=== PATIENT | female | born 1995 | race Caucasian/White ===

== ENCOUNTER → 2018-07-02 | Outpatient (REF) | payer MEDICARE ==
[2018-07-02 16:02] LABS: ESTIMATED AVERAGE GLUCOSE 111 MG/DL (60-110); HEMOGLOBIN A1c 5.5 %
[2018-07-02 16:17] LABS: ANION GAP 8 MEQ/L (8-16); BLOOD UREA NITROGEN 8 MG/DL (7-18); CALCIUM LEVEL 9.6 MG/DL (8.5-10.1); CARBON DIOXIDE LEVEL 29 MEQ/L (21-32); CHLORIDE LEVEL 102 MEQ/L (98-107); CREATININE FOR GFR 0.87 MG/DL (0.55-1.30); FREE T4 0.99 NG/DL (0.76-1.46); GLOMERULAR FILTRATION RATE > 60.0 (>60); GLUCOSE, FASTING 82 MG/DL (70-100); PROLACTIN 9.7 NG/ML; SODIUM LEVEL 139 MEQ/L (136-145)
[2018-07-03 09:27] LABS: RUBELLA IgG QUALITATIVE IMMUNE (IMMUNE)
[2018-07-04 08:06] LABS: MUMPS VIRUS IgG ANTIBODY 95.7 AU/mL (Immune >10.9)
[2018-07-04 08:06] LABS: RUBEOLA IgG ANTIBODY >300.0 AU/mL (Immune >29.9)
== END ==
LOC: M SFHCPLAZ 14:06
DX: D35.2 Benign neoplasm of pituitary gland (principal); E66.01 Morbid (severe) obesity due to excess calories; Z68.45 Body mass index [BMI] 70 or greater, adult; F17.200 Nicotine dependence, unspecified, uncomplicated; H53.9 Unspecified visual disturbance
CPT/HCPCS: 84146

== ENCOUNTER → 2018-07-09 | Outpatient (CLI) | payer OTHER ==
[~2018-07-09] MED LIST: PROHANCE 279.3MG/ML 5ML VIAL (A9576) As Ordered
== END ==
LOC: M RAD 15:43
DX: Z86.018 Personal history of other benign neoplasm (principal)
CPT/HCPCS: A9576

== ENCOUNTER → 2019-09-12 | Outpatient (REF) | payer OTHER ==
[2019-09-12 14:56] LABS: FREE T4 1.16 NG/DL (0.76-1.46); RHEUMATOID FACTOR QUANT < 10.0 IU/ML (<15.0); TOTAL PROTEIN 8.2 GM/DL (6.4-8.2)
[2019-09-12 14:58] LABS: VITAMIN B12 LEVEL 1341 PG/ML
[2019-09-12 14:59] LABS: FOLATE > 24.0 NG/ML
[2019-09-12 15:50] LABS: HEMOGLOBIN A1c 5.3 %
[2019-09-16 10:56] LABS: ALBUMIN % 59.2 % (55.8-66.1); ALPHA-1-GLOBULIN % 4.1 % (2.9-4.9); ALPHA-2-GLOBULINS % 11.4 % (7.1-11.8); BETA-1-GLOBULINS % 6.7 % (4.7-7.2); BETA-2-GLOBULINS % 4.5 % (3.2-6.5)
[2019-09-16 10:57] LABS: ALBUMIN 4.85 GM/DL (3.29-5.55); ALPHA-1-GLOBULINS 0.34 GM/DL (0.17-0.41); ALPHA-2-GLOBULINS 0.93 GM/DL (0.42-0.99); BETA-1-GLOBULINS 0.55 GM/DL (0.28-0.60); BETA-2-GLOBULINS 0.37 GM/DL (0.19-0.55); GAMMA GLOBULIN % 14.1 % (11.1-18.8); GAMMA GLOBULINS 1.14 GM/DL (0.65-1.58)
[2019-09-16 11:30] LABS: DRVV SCREEN 48.8 SEC
[2019-09-16 11:34] LABS: PTT LUPUS TYPE ANTICOAG SCREEN 1.2 (0-1.2)
[2019-09-16 11:43] LABS: DRVV CONFIRM 41.6 SEC; LUPUS CONFIRM RATIO 1.1
[2019-09-16 11:46] LABS: NORMALIZED RATIO 1.09 (0.00-1.20)
[2019-09-17 08:17] LABS: ACETYLCHOLINE RCPTOR BINDING A 0.03 nmol/L (0.00-0.24); ANGIOTENSIN 1 CONVERTING ENZYM 45 U/L (14-82); ANTINUCLEAR ANTIBODIES DIRECT Negative (Negative); VITAMIN B1 LEVEL WHOLE BLOOD 169.2 nmol/L (66.5-200.0); VITAMIN B6,PYRIDOXAL PHOSPHATE 7.4 ug/L (2.0-32.8); VITAMIN E(ALPHA TOCOPHEROL) 9.4 mg/L (5.9-19.4); VITAMIN E(GAMMA TOCOPHEROL) 2.7 mg/L (0.7-4.9)
== END ==
LOC: M LABNEURO 10:20
PROVIDERS: ATTEND Psychiatry & Neurology Neurology
DX: G43.709 Chronic migraine without aura, not intractable, without status migrainosus (principal); H53.2 Diplopia

== ENCOUNTER → 2019-12-22 | Outpatient (CLI) | payer OTHER | LOC: M LABSMTC 14:12 | PROVIDERS: ATTEND Family Medicine | DX: Z11.59 Encounter for screening for other viral diseases (principal) | CPT/HCPCS: C8903; U0003 ==

== ENCOUNTER 2020-06-28 10:30 | Outpatient (RCR) | payer OTHER | END 2020-07-12 | LOC: M OT 10:30 | PROVIDERS: ATTEND Physician Assistant | DX: M65.231 Calcific tendinitis, right forearm (principal) ==

== ENCOUNTER → 2021-02-10 | Outpatient (CLI) | payer OTHER ==
[2021-02-10 16:05] LABS: FOLLICLE STIMULATING HORMONE 5.6 mIU/mL; HCG, SERUM QUANTITATIVE < 1.0 MIU/ML; LUTEINIZING HORMONE 17.3 mIU/mL; PROLACTIN 9.3 NG/ML
== END ==
LOC: M PLALAB 12:46
PROVIDERS: ATTEND Student in an Organized Health Care Education/Training Program
DX: N91.2 Amenorrhea, unspecified (principal)

== ENCOUNTER → 2021-02-11 | Outpatient (CLI) | payer OTHER | LOC: M PLALAB 08:26 | PROVIDERS: ATTEND Student in an Organized Health Care Education/Training Program | DX: N91.2 Amenorrhea, unspecified (principal) ==

== ENCOUNTER → 2021-03-02 | Outpatient (REF) | payer OTHER | LOC: M SFHCWAGY 17:49 | PROVIDERS: ATTEND Advanced Practice Midwife | DX: Z12.4 Encounter for screening for malignant neoplasm of cervix (principal) ==

== ENCOUNTER → 2021-03-02 | Outpatient (CLI) | payer OTHER | LOC: M PLALAB 14:25 | PROVIDERS: ATTEND Student in an Organized Health Care Education/Training Program | DX: N91.2 Amenorrhea, unspecified (principal) ==